=== PATIENT | female | born 1970 | race American Indian/Alaskan Native ===

== ENCOUNTER 2017-10-24 16:47 | Emergency (ER) | payer MEDICAID ==
[2017-10-24 16:47] VITALS: BMI 32.5
[2017-10-24] MEDS ORDERED: Lactated Ringer's 1,000 ML IV ONE (17:11)
--- NOTE | 2017-10-24 17:18 | C.PDOC ---
History Of Present Illness 47 year old female, with a past medical history of lupus, who was brought to the emergency department by EMS for fever, productive cough, vomit, and diarrhea onset since yesterday. Patient reports 3 episodes of vomit and 2 episodes of diarrhea today. She also reports clear sputum from the cough. She took Motrin with no relief of symptoms. Patient was afebrile during triage. No further medical complaints. PMD: Dar Peña Seen by Provider: 10/24/17 16:55 Chief Complaint (Nursing): Flu-like Symptoms History Per: Patient History/Exam Limitations: no limitations Onset/Duration Of Symptoms: Days (x1) Current Symptoms Are (Timing): Still Present Location Of Pain: None Associated Symptoms: Fever, Cough (productive), Sputum (clear), Vomiting (x3), Diarrhea (x2) Ear Symptoms: Bilateral: None Past Medical History Reviewed: Historical Data, Nursing Documentation, Vital Signs Vital Signs: Last Vital Signs Temp 98.0 F 10/24/17 16:57 Pulse 147 H 10/24/17 16:57 Resp 18 10/24/17 16:57 BP 130/74 10/24/17 16:57 Pulse Ox 97 10/24/17 18:36 - Medical History PMH: Anxiety, Arthritis, Depression, Hypothyroidism, Osteoporosis Other PMH: Lupus, fibromyalgia - [facility] [place] Procedures CLOSED ENDOSCOPIC BIOPSY OF LARGE INTESTINE (09/13/07) DPT ADMINISTRATION (08/12/14) ENDO EXCISION/DEST OF LESION OR TISSUE OF STOMACH (10/30/03) ESOPHAGOGASTRODUODENOSCOPY [EGD] W/CLOSED BIOPSY (10/30/03) INJECT/INFUSE ELECTROLYT (04/15/13) INJECT/INFUSE NEC (10/19/14) LAPAROSCOP LYSIS-PERITONEAL ADHES (12/25/00) Family History: States: Unknown Family Hx - Social History Hx Tobacco Use: Yes Hx Alcohol Use: No Hx Substance Use: No Review Of Systems Except As Marked, All Systems Reviewed And Found Negative. Constitutional: Positive for: Fever, Weakness, Malaise Respiratory: Positive for: Cough (productive), Sputum (clear) Gastrointestinal: Positive for: Vomiting (x3), Diarrhea (x2) Physical Exam - Physical Exam Appears: Non-toxic, No Acute Distress Skin: Normal Color, Warm, Diaphoretic Head: Atraumatic, Normacephalic Eye(s): bilateral: Normal Inspection, PERRL, EOMI Ear(s): Bilateral: Normal Nose: Normal Throat: Normal Neck: Normal, Normal ROM Chest: Symmetrical, No Tenderness Cardiovascular: Rhythm Regular, No Murmur Respiratory: Normal Breath Sounds, No Accessory Muscle Use Gastrointestinal/Abdominal: Normal Exam, Bowel Sounds, Soft, No Tenderness, No Guarding, No Rebound Back: Normal Inspection, No CVA Tenderness Extremity: Normal ROM, No Deformity, No Swelling Neurological/Psych: Oriented x3, Normal Speech Gait: Steady ED Course And Treatment - Laboratory Results Result Diagrams: 10/24/17 17:44 10/24/17 17:44 ECG Rhythm: Sinus Tachycardia Rate From EC O2 Sat by Pulse Oximetry: 97 (RA) Medical Decision Making Medical Decision Making: Initial Impression: Fever and flu-like symptoms Plan --EKG --Comp Metabolic Panel --Lipase --CBC w/ differential --Chest two views (PA/LAT) [RAD] --Lactated rin IV 1,000 ml @ 1,000mls/hr --Urine culture --Influenza A B --Urinalysis 174 chest x-ray FINDINGS: LUNGS:There is heterogeneous opacity and infiltrate at the central portion of the left lung may represent a pneumonia. PLEURA:Wanting of the left costophrenic angle likely due to small pleural effusion CARDIOVASCULAR:Normal. OSSEOUS STRUCTURES:No significant abnormalities. VISUALIZED UPPER ABDOMEN:Normal. OTHER FINDINGS:None. IMPRESSION:Heterogeneous infiltrate at the central portion of the left lung suspicious for pneumonia. Small left pleural effusion. Labs reviewed and shows leukocytosis and bands, otherwise negative flu and no electrolyte abnormality Orders placed for blood cultures and IV Rocephin and Zithromax. Patient reevaluated and states she feels unchanged and would feel better to stay in hospital. Will call Dr Peña. [phone] Spoke with Dr Peña and he does not accept admission, states patient does not meet admission criteria. Patient can be discharged with PO antibiotics and follow up in the office. Patient was advised of discussion and will discharge with Rx. Instruct to follow up in the office. Disposition Counseled Patient/Family Regarding: Studies Performed, Diagnosis, Need For Followup, Rx Given - Disposition Referrals: Dar Peña MD [Staff Provider] - Disposition: HOME/ ROUTINE Disposition Time: 18:35 Condition: STABLE Additional Instructions: You have pneumonia and must be treated with antibiotics. Take as prescribed Take cough medicine as needed. Take Tylenol or Motrin alternating every 4-6 hours for Fever 100.4F or higher. Rest and drink plenty of fluids. Follow up with Dr Peña in the office. Return to the emergency department at any time if symptoms persist or worsen. Prescriptions: RX: Azithromycin [Zithromax] 250 mg PO DAILY #4 tab RX: Promethazine DM [Phenergan DM Syrup] 5 ml PO Q8 PRN #3 oz PRN Reason: Cough Instructions: Bacterial Pneumonia (DC) Forms: [employer] (Slovak) - POA Present On Arrival: None - Clinical Impression Clinical Impression: Pneumonia involving left lung - PA / PROFESSOR OF PRACTICE / Resident Statement MD/DO has reviewed & agrees with the documentation as recorded. - Scribe Statement The provider has reviewed the documentation as recorded by the Scribe Documented by Prasanna Monroy acting as a scribe for DERIK Thakur All medical record entries made by the Scribe were at my direction and personally dictated by me. I have reviewed the chart and agree that the record accurately reflects my personal performance of the history, physical exam, medical decision making, and the department course for this patient. I have also personally directed, reviewed, and agree with the discharge instructions and disposition.
[2017-10-24] MEDS ORDERED: Lactated Ringer's 1,000 ML ONE (17:24)
[2017-10-24] MEDS ORDERED: cefTRIAXone IV 1 gm in Dextros 50 ML IV STA (17:37)
[2017-10-24] MEDS ORDERED: Azithromycin 500mg/250ML NS 500 MG/250 ML BAG IV STA (17:37)
[2017-10-24 17:47] LABS: BASO # 0.1 K/uL (0.0-0.2); BASO % 0.4 % (0.0-2.0); EOS % 0.1 % (0.0-4.0); HEMATOCRIT 39.6 % (34.0-47.0); LYMPH % 7.8 % (20.0-40.0); MEAN CELL VOLUME 90.1 fL (81.0-99.0); MEAN CORPUSCULAR HEMOGLOBIN 29.8 pg (27.0-31.0); MEAN CORPUSCULAR HGB CONC 33.1 g/dL (33.0-37.0); MEAN PLATELET VOLUME 7.7 fL (7.2-11.7); MONO # 0.4 K/uL (0.0-0.8); MONO % 3.4 % (0.0-10.0); PLATELET COUNT 240 K/uL (130-400); RED CELL DISTRIBUTION WIDTH 15.9 % (11.5-14.5)
--- NOTE | 2017-10-24 17:47 | RAD ---
HISTORY: SOB COMPARISON: No prior. TECHNIQUE: Chest PA and lateral FINDINGS: LUNGS: There is heterogeneous opacity and infiltrate at the central portion of the left lung may represent a pneumonia. PLEURA: Wanting of the left costophrenic angle likely due to small pleural effusion CARDIOVASCULAR: Normal. OSSEOUS STRUCTURES: No significant abnormalities. VISUALIZED UPPER ABDOMEN: Normal. OTHER FINDINGS: None. IMPRESSION: Heterogeneous infiltrate at the central portion of the left lung suspicious for pneumonia. Small left pleural effusion.
[2017-10-24 18:01] LABS: ALKALINE PHOSPHATASE 94 U/L (38-126); ALT/SGPT 39 U/L (9-52); AST/SGOT 36 U/L (14-36); BILIRUBIN,TOTAL 1.3 mg/dL (0.2-1.3); BLOOD UREA NITROGEN 9 mg/dL (7-17); CALCIUM 8.7 mg/dl (8.6-10.4); CARBON DIOXIDE 23 mmol/L (22-30); CHLORIDE 104 mmol/L (98-107); GFR AFRICAN-AMERICAN > 60; GLUCOSE,RANDOM 111 mg/dL (65-105); POTASSIUM 3.7 mmol/L (3.6-5.2); SODIUM 140 mmol/L (132-148); TOTAL PROTEIN 8.8 g/dL (6.3-8.3)
[2017-10-24 18:04] LABS: RBC URINE 4 /hpf (0-3); URINE BACTERIA FEW (<OCC); URINE BILIRUBIN NEGATIVE (NEGATIVE); URINE BLOOD NEGATIVE (NEGATIVE); URINE GLUCOSE (UA) NORMAL (Normal); URINE KETONE TRACE mg/dL (NEGATIVE); URINE LEUKOCYTE ESTERASE NEG Leu/uL (Negative); URINE PROTEIN 2+ mg/dL (NEGATIVE); WBC URINE 4 /hpf (0-5)
[2017-10-24 18:06] LABS: URINE COLOR YELLOW (YELLOW)
[2017-10-24 18:08] LABS: ALB/GLOB RATIO 0.9 (1.0-2.1)
[2017-10-24 18:26] LABS: NEUTROPHIL 81 % (50-75); TOTAL CELLS COUNTED 100
[2017-10-24 18:27] LABS: LARGE PLATELETS PRESENT
[2017-10-24 19:26] VITALS: BP 122/76; PULSE 102; RESP 22; TEMP 98.8
[2017-10-25 07:15] VITALS: O2SAT 97
== END 2017-10-24 19:42 | disposition home or self-care (01) ==
LOC: C.ER 16:47
DX: J18.9 Pneumonia, unspecified organism (principal); F17.210 Nicotine dependence, cigarettes, uncomplicated
CPT/HCPCS: 71020; 80053; 81001; 83690; 85025; 87040; 87086; 87181; 87804; 96361; 96365; 99284; J0696; J7120